=== PATIENT | male | born 1960 | race Caucasian/White ===

== ENCOUNTER 2017-01-02 17:56 | Observation (INO) | payer BC ==
[2017-01-02] MEDS ORDERED: PANTOPRAZOLE SODIUM 80 MG in NS 100 ML IV ONE (18:46)
--- NOTE | 2017-01-02 18:49 | EDPHY ---
H & P Time Seen by Provider: 01/02/17 18:28 HPI/ROS: CHIEF COMPLAINT: Black stools HISTORY OF PRESENT ILLNESS: Patient was sent from his primary care provider at [facility]. He tweaked his back refinishing a deck and took 2 Naprosyn this last week on and again on Sunday night. On Sunday night he had a black stool and then over the next couple of days had 2 more on Sunday and 3 more today. He went to his primary care physician and had Hemoccult-positive stool sample and was sent here. He denies abdominal pain or vomiting, red blood per rectum, dizzy or lightheaded , syncope chest pain or shortness of breath. REVIEW OF SYSTEMS: Eye: no change in vision ENT: no sore throat Cardiac: no chest pain or syncope Pulmonary: no cough or SOB Abdomen: HPI Musculoskeletal: As above in the HPI Skin: no rash Neuro: no headache Constitutional: no fever : no urinary symptoms A comprehensive 10 point review of systems is otherwise negative aside from elements mentioned in the history of present illness. PAST MEDICAL HISTORY: Negative Social history: Occasional alcohol, no tobacco. General Appearance: Alert and conversant, cooperative. Eyes: No scleral icterus. ENT, Mouth: Normal mucous membranes. Respiratory: Normal respiratory effort, breath sounds equal, lungs are clear to auscultation. Cardiovascular: Regular rate and rhythm. Gastrointestinal: Abdomen is soft and non tender. Neurological: Alert and oriented x3. Normally conversant. Face symmetric, normal movement and sensation in all extremities. Skin: Warm and dry, no rashes. No bruising. Musculoskeletal: No peripheral edema and no joint swelling. Psychiatric: Not agitated. Emergency Department course/MDM: Patient had black Hemoccult stools and presents with likely GI bleed. IV Protonix, type and screen, admission to hospitalist with Gastroenterology consultation for endoscopy in the morning. Low likelihood of lower GI bleed, esophageal varices, systemic coagulopathy, intestinal perforation. Discussed with Scarlett Moss. Reynaldo Pantoja. Smoking Status: Never smoked Constitutional: Initial Vital Signs Temperature (C) 37.2 C 01/02/17 18:02 Heart Rate 76 01/02/17 18:02 Respiratory Rate 16 01/02/17 18:02 Blood Pressure 136/85 H 01/02/17 18:02 O2 Sat (%) 98 01/02/17 18:02 O2 Delivery Mode Room Air Allergies/Adverse Reactions: penicillin G Allergy (Verified 01/02/17 18:01) Home Medications: Medication Instructions Recorded Aspirin [Aspirin 81mg (*)] 81 mg PO DAILY 01/02/17 Cholecalciferol Vit D3 [Vitamin D3 1,000 units PO DAILY 01/02/17 (*)] Multivitamins [Multivitamin (*)] 1 each PO DAILY 01/02/17 [place]-3 Fatty Acids [Fish Oil 1000 1,000 mg PO DAILY 01/02/17 mg (*)] Sertraline HCl [Zoloft 50mg (*)] 50 mg PO DAILY 01/02/17 Medical Decision Making Differential Diagnosis: Differential considered including but not limited to upper GI bleed, lower GI bleed, food related, esophageal varices. - Data Points Laboratory Results: Laboratory Results 01/02/17 18:15 01/02/17 18:15 01/02/17 01/02/17 01/02/17 18:15 18:15 18:15 WBC 7.18 10^3/uL 10^3/uL (3.80-9.50) RBC 4.94 10^6/uL 10^6/uL (4.40-6.38) Hgb 14.6 g/dL g/dL (13.7-17.5) Hct 42.9 % % (40.0-51.0) MCV 86.8 fL fL (81.5-99.8) MCH 29.6 pg pg (27.9-34.1) MCHC 34.0 g/dL g/dL (32.4-36.7) RDW 12.6 % % (11.5-15.2) Plt Count 202 10^3/uL 10^3/uL (150-400) MPV 10.8 fL fL (8.7-11.7) Neut % (Auto) 58.0 % % (39.3-74.2) Lymph % (Auto) 30.1 % % (15.0-45.0) [place] % (Auto) 9.3 % % (4.5-13.0) Eos % (Auto) 1.9 % % (0.6-7.6) Baso % (Auto) 0.4 % % (0.3-1.7) Nucleat RBC Rel Count 0.0 % % (0.0-0.2) Absolute Neuts (auto) 4.16 10^3/uL 10^3/uL (1.70-6.50) Absolute Lymphs (auto) 2.16 10^3/uL 10^3/uL (1.00-3.00) Absolute Monos (auto) 0.67 10^3/uL 10^3/uL (0.30-0.80) Absolute Eos (auto) 0.14 10^3/uL 10^3/uL (0.03-0.40) Absolute Basos (auto) 0.03 10^3/uL 10^3/uL (0.02-0.10) Absolute Nucleated RBC 0.00 10^3/uL 10^3/uL (0-0.01) Immature Gran % 0.3 % % (0.0-1.1) Immature Gran # 0.02 10^3/uL 10^3/uL (0.00-0.10) Sodium 140 mEq/L mEq/L (134-144) Potassium 4.0 mEq/L mEq/L (3.5-5.2) Chloride 102 mEq/L mEq/L (97-110) Carbon Dioxide 26 mEq/l mEq/l (22-31) Anion Gap 12 mEq/L mEq/L (8-16) BUN 24 mg/dL H mg/dL (7-23) Creatinine 0.9 mg/dL mg/dL (0.7-1.3) Estimated GFR > 60 Glucose 89 mg/dL mg/dL (70-100) Calcium 9.7 mg/dL mg/dL (8.5-10.4) Patient ABO/Rh A NEGATIVE Antibody Screen NEGATIVE Medications Given: Pantoprazole Sodium 80 mg/ (Sodium Chloride) 100 mls @ 10 mls/hr IV Q10H ONE Stop: 01/03/17 04:45 Last Admin: 01/02/17 19:51 Dose: 100 mls Departure - Departure Disposition: [facility] Acute Clinical Impression: Acute upper GI bleed Condition: Good
[2017-01-02 18:52] LABS: % IMMATURE GRANULYOCYTES 0.3 % (0.0-1.1); ABSOLUTE IMMATURE GRANULOCYTES 0.02 10^3/uL (0.00-0.10); ADD DIFF? NO; ADD MORPH? NO; ADD SCAN? NO; ATYPICAL LYMPHOCYTE FLAG 10 (0-99); FRAGMENT RBC FLAG 0 (0-99); HEMATOCRIT 42.9 % (40.0-51.0); HEMOGLOBIN 14.6 g/dL (13.7-17.5); LEFT SHIFT FLG 0 (0-99); LIPEMIA HEMOLYSIS FLAG 90 (0-99); MEAN CELL HEMOGLOBIN 29.6 pg (27.9-34.1); MEAN CELL VOLUME 86.8 fL (81.5-99.8); MEAN PLATELET VOLUME 10.8 fL (8.7-11.7); PLATELET CLUMPS FLAG 10 (0-99); PLATELET COUNT 202 10^3/uL (150-400); RED BLOOD CELL COUNT 4.94 10^6/uL (4.40-6.38); RED CELL DISTRIBUTION WIDTH 12.6 % (11.5-15.2)
[2017-01-02 19:11] LABS: ANION GAP 12 mEq/L (8-16); CALCIUM 9.7 mg/dL (8.5-10.4); CARBON DIOXIDE 26 mEq/l (22-31); CHLORIDE 102 mEq/L (97-110); CREATININE 0.9 mg/dL (0.7-1.3); GLOMERULAR FILTRATION RATE > 60; GLUCOSE 89 mg/dL (70-100); SODIUM 140 mEq/L (134-144)
[2017-01-02] MEDS ORDERED: ONDANSETRON 4 MG/2 ML VIAL IVP PRN (22:31)
[2017-01-02] MEDS ORDERED: ONDANSETRON DISINTEGRATING 4 MG TAB PO PRN (22:31)
[2017-01-02] MEDS ORDERED: ACETAMINOPHEN 325 MG TAB PO PRN (22:31)
[2017-01-02] MEDS: NS 1,000 ML IV SCH (22:53)
[2017-01-02 23:16] LABS: HEMATOCRIT 40.5 % (40.0-51.0); HEMOGLOBIN 13.7 g/dL (13.7-17.5)
--- NOTE | 2017-01-02 23:20 | GHP ---
[f rep st] HISTORY AND PHYSICAL DATE OF ADMISSION: 01/02/2017 CHIEF COMPLAINT: Melena. HISTORY OF PRESENT ILLNESS: A pleasant 56-year-old male with history of anxiety-depression, present ing with melena starting on Sunday. He was in his normal state of health and noticed small black st ool. This continued Sunday and today; thus, he called his PCP, who recommended him to come to the e mergency room. He injured his back last week moving rocks and took an old prescription of Aleve 500 mg. he took a total of 3 doses over the weekend. Also takes a baby aspirin. Has had increased st ress with work. Drinks 2 cups of coffee a day. No chest pain, shortness of breath, abdominal pain, lightheadedness. No nausea or vomiting. REVIEW OF SYSTEMS: I completed a 10-point review of systems, negative except as noted in HPI. PAST MEDICAL HISTORY: Anxiety-depression. MEDICATIONS: Aspirin, Zoloft, Aleve 500 mg x3 doses over the weekend. PAST SURGICAL HISTORY: None. SOCIAL HISTORY: Lives in [place], works in [place]. Lives with his . Will have an alco aDealioic beverage a night. No illicits or tobacco. FAMILY HISTORY: Brother with polyps. Dad with an ulcer. ALLERGIES: Penicillin. PHYSICAL EXAMINATION: VITAL SIGNS: Temperature 36.8, blood pressure 133/87, heart rate in the 60s, respirations 16, 93% on room air. GENERAL: Well-appearing male, sitting up in bed, no acute distr ess, smiling. HEENT: PERRLA. EOMI. Oropharynx clear. No conjunctival pallor. CV: Regular rate and rhythm. No murmurs, gallops, or rubs. LUNGS: Clear to auscultation. No crackles or wheezing . ABDOMEN: Soft, nontender, nondistended. Positive bowel sounds. : No suprapubic tenderness. MUSCULOSKELETAL: 5/5 upper and lower extremities strength. NEUROLOGIC: 2 through 12 intact. PSY CHIATRIC: Alert and oriented x3. LABORATORY: WBC 7, hemoglobin 14, hematocrit 42, platelets 202. Sodium 140, potassium 4.0, chlorid e 102, carbon dioxide 26, BUN 24, creatinine 0.9, glucose 89, calcium 9.7. ASSESSMENT AND PLAN: 1. Melena, concern for gastrointestinal bleed in setting of Aleve and aspirin. hemoglobin and bia tocrit are normal, and he is hemodynamically stable. Repeat hemoglobin and hematocrit. Check a Hel icobacter pylori. The patient will be evaluated by Dr. Moss with likely esophagogastroduodenoscopy in the morning. Continue intravenous proton pump inhibitor. 2. Anxiety/depression. Continue Zoloft. 3. Diet: Clears and n.p.o. after midnight. 4. Deep venous thrombosis prophylaxis. Low risk, ambulatory. DISPOSITION: The patient warrants observation admission given melena and concern for GI bleed randee berger IV PPI and endoscopy. /[id number]/MODL
[2017-01-03 05:14] LABS: HEMATOCRIT 40.4 % (40.0-51.0); HEMOGLOBIN 13.5 g/dL (13.7-17.5); MEAN CELL HEMOGLOBIN CONCENTR. 33.4 g/dL (32.4-36.7); MEAN CELL VOLUME 86.7 fL (81.5-99.8); RED BLOOD CELL COUNT 4.66 10^6/uL (4.40-6.38); RED CELL DISTRIBUTION WIDTH 12.4 % (11.5-15.2)
--- NOTE | 2017-01-03 06:07 | SOAPPROG ---
SOAP Progress Note Assessment/Plan: Assessment/Plan: Chart reviewed, pt. not seen yet, formal note to follow. Suspect a very limited UGI bleed from NSAID use (normal Hct x multiple values). Unremarkable colon in the recent past. - EGD - suspect home after 01/03/17 06:05 Objective: Vital Signs Temp Pulse Resp BP Pulse Ox 36.7 C 56 L 16 110/54 L 94 01/03/17 04:00 01/03/17 04:00 01/03/17 04:00 01/03/17 04:00 01/03/17 04:00 Laboratory Results 01/03/17 04:38 01/02/17 01/03/17 01/04/17 05:59 05:59 05:59 Intake Total 5 Balance 5 ICD10 Worksheet Patient Problems: Problems Problem Status Onset Acute upper GI bleed Acute
--- NOTE | 2017-01-03 08:55 | HOSPPROG ---
Hospitalist Progress Note Assessment/Plan: Patient is a 56-year-old male who presented with melena that started on Sunday. He had been taking Aleve as well as baby aspirin to help with some back pain. Today is my 1st encounter with the patient. Chart reviewed. * melena Likely an upper GI bleed in the setting of using NSAIDs Will get an EGD today * anxiety, depression Home meds resumed *Plan: likely dc later today after procedure Subjective: Gilberto has no c/o pain/ overall feeling well/ has some frequent bouts of low back pain Objective: Vital Signs Temp Pulse Resp BP Pulse Ox 36.7 C 56 L 12 109/72 96 01/03/17 08:00 01/03/17 08:00 01/03/17 08:00 01/03/17 08:00 01/03/17 08:00 Laboratory Results 01/03/17 04:38 01/02/17 01/03/17 01/04/17 05:59 05:59 05:59 Intake Total 1205 Balance 1205 - Physical Exam Constitutional: no apparent distress, appears nourished, not in pain Eyes: PERRL Ears, Nose, Mouth, Throat: hearing normal Cardiovascular: regular rate and rhythym Respiratory: no respiratory distress Gastrointestinal: normoactive bowel sounds Skin: warm, normal color Musculoskeletal: no muscle tenderness Neurologic: AAOx3 Psychiatric: interacting appropriately, not anxious ICD10 Worksheet Patient Problems: Problems Problem Status Onset Acute upper GI bleed Acute
[2017-01-03] MEDS ORDERED: PANTOPRAZOLE SODIUM 40 MG in NS 100 ML IV SCH (09:00)
[2017-01-03] MEDS ORDERED: OMEGA-3 FATTY ACIDS 1,000 MG CAP PO SCH (09:00)
[2017-01-03] MEDS ORDERED: MULTIVITAMINS 1 EACH TAB PO SCH (09:00)
[2017-01-03] MEDS ORDERED: SERTRALINE HCL 50 MG TAB PO SCH ×2 (09:00)
[2017-01-03] MEDS ORDERED: CHOLECALCIFEROL VIT D3 1,000 UNITS TAB PO SCH (09:00)
[2017-01-03] MEDS: NS 1,000 ML IV SCH (09:53)
[2017-01-03] MEDS ORDERED: NS 500 ML IV ONE (10:37)
[2017-01-03] MEDS ORDERED: MIDAZOLAM 2 MG/2 ML VIAL ONE ×2 (10:55)
[2017-01-03] MEDS ORDERED: fentaNYL 100 MCG/2 ML INJ ONE (10:56)
--- NOTE | 2017-01-03 11:20 | PDPROPOC ---
Sedation Plan of Care ASA Classification: ASA 1 Mallampati Score: Class 1
[2017-01-03] MEDS ORDERED: MIDAZOLAM 2 MG/2 ML VIAL IVP ONE (11:35)
[2017-01-03] MEDS ORDERED: fentaNYL 100 MCG/2 ML INJ IVP ONE (11:35)
--- NOTE | 2017-01-03 11:38 | POSTOPPROG ---
Post Op Note Date of Operation: 01/03/17 Surgeon: Robert Moss Pre-op Diagnosis: melena Post-op Diagnosis: small nonbleeding gastric erosions Procedure: egd Findings: Rec. OTC prilosec 20 mg 3 weeks; no aleve for 3 weeks, then ok with a PPI Inf/Abcess present in the surg proc area at time of surgery?: No EBL: Minimal Complications: None
--- NOTE | 2017-01-03 12:12 | GCON ---
[f rep st] CONSULTATION GI INPATIENT CONSULTATION DATE OF CONSULTATION: 01/03/2017 REASON FOR CONSULTATION: I was kindly requested to see the patient by Dr. Deedee Jacobs in consultation for a chief complaint of melena. HISTORY OF PRESENT ILLNESS: He is a 56-year-old white male, who began to use some Aleve for an acute back injury. He also takes a baby aspirin. He noted on Sunday black stool. He denies abdominal pain, lightheadedness, syncope. Denies nausea, vomiting. Hematocrit is stable at 40%. He had a colonoscopy done by my partner, Dr. Winslow, in 2013, which was unremarkable except for some polyps. PAST MEDICAL HISTORY: 1. As above. 2. Anxiety and depression. 3. Otherwise, noncontributory. OUTPATIENT MEDICATIONS: Include the above. INPATIENT MEDICATIONS: Include Zoloft and IV fluids. SOCIAL HISTORY: He is . FAMILY HISTORY: Negative for similar bleeding. REVIEW OF SYSTEMS: Positive pertinent review of systems as per my HPI. Otherwise, a complete review of systems is negative. PHYSICAL EXAMINATION: CONSTITUTIONAL: Nontoxic, well-developed, pleasant gentleman. SKIN: Warm, dry. EYES: Pupils equal, round, reactive to light and accommodation. EARS, NOSE, MOUTH, THROAT: Oropharynx without masses, moist mucosa. CARDIOVASCULAR: Normal S2, normal PMI. RESPIRATORY: Lungs clear to auscultation and percussion anteriorly. ABDOMEN: Soft, nontender. NEUROLOGIC: Grossly nonfocal, cranial nerves grossly intact. PSYCHIATRIC: Orientation, insight appropriate. MUSCULOSKELETAL: Strength grossly normal throughout, normal sensation. LABORATORIES: Include the above. Normal electrolytes. ASSESSMENT: Description of black stool. I suspect he may have had a very limited upper gastrointestinal bleed, due to his nonsteroidal use. Gastric arteriovenous malformation, gastric cancer, etc., is possible, but less likely. PLAN: 1. Upper endoscopy. 2. Further management pending the above. Thank you for allowing me to help in the care of this patient. /[id number]/MODL MTDD
--- NOTE | 2017-01-03 12:17 | GPN ---
[f rep st] PROCEDURE NOTE DATE OF PROCEDURE: 01/03/2017 PROCEDURE PERFORMED: Upper endoscopy with biopsy. PREPROCEDURE DIAGNOSIS: Description of melena. POSTPROCEDURE DIAGNOSIS: Several small erosions seen in the antrum, nonbleeding. Else, see below. PREMEDICATION: Fentanyl 100 mcg IV, Versed 6 mg IV. COMPLICATIONS: None. TOTAL TIME OF PROCEDURE: From sedation to procedures end was 14 minutes. FINDINGS: After informed consent was obtained, the patient was placed in the left lateral decubitus position. Video upper endoscope was placed under direct visualization and advanced. Esophagus and duodenum were normal. The stomach had several small erosions in the antrum, nonbleeding. No blood seen in the stomach. Biopsy done of the cardia and antrum for H pylori. IMPRESSION: Several small antral erosions. I suspect one of these was the cause of his "black" stool, causing a very self-limited gastrointestinal bleed. His hematocrit has remained normal. Now, no further evidence of bleeding. PLAN: 1. Will let him eat. 2. Will change him to a PPI daily. 3. Biopsies for H pylori pending. From a GI standpoint, okay to discharge home. Would recommend, upon discharge: a) Prilosec [id number] 20 mg daily for 3 weeks. b) okay to continue aspirin. c) would avoid nonsteroidals, including Aleve, for the next 3 weeks. Okay to use a low-dose narcotic as needed for his acute back pain. d) after 3 weeks, okay for him to use nonsteroidals in the future, if necessary. However, if he does need to use a nonsteroidal, would recommend taking [id number] Prilosec daily while using these. I will follow up on his biopsy for H pylori, but suspect it to be negative. Otherwise, follow up with his PCP as needed. Thank you for allowing me to help in the care of this patient. Please let me know if we can be of further help in the future. /[id number]/MODL MTDD
[2017-01-03 12:29] VITALS: BP 114/77; PULSE 52; RESP 14; TEMP 97.9; O2SAT 97
--- NOTE | 2017-01-03 13:37 | GDS ---
[f rep st] DISCHARGE SUMMARY DISCHARGE DIAGNOSES: 1. Gastrointestinal bleed, upper, secondary to non-steroidal anti-inflammatories use. 2. Anxiety. CONSULTATIONS: Dr. Robert Moss. HISTORY OF PRESENT ILLNESS: Briefly, the patient is a 56-year-old male, who presented with melena t hat started on Sunday. He had been taking Aleve as well as baby aspirin to help with some back pain . He had an EGD performed today with Dr. Moss. It showed several small antral erosions. He suspec silver that one of these was the cause of his black stool, causing a very limited gastrointestinal blee d. He will be discharged home today and further followup with Dr. Moss in the outpatient setting. CONDITION AT DISCHARGE: Stable. Blood pressure is 114/77, heart rate is 52, respiratory rate is 14 , O2 sats on room air 97%, and temperature is 36.6 Celsius. MEDICATIONS AT DISCHARGE: Please see the EMR. DISCHARGE INSTRUCTIONS: 1. Avoid NSAIDs for the next 3 weeks. 2. If he needs them for back pain, to take Prilosec when he does take NSAIDs. 3. Okay to resume his aspirin. 4. Take Prilosec for the next 3 weeks. /[id number]/MODL
[2017-01-04] MEDS ORDERED: PANTOPRAZOLE SODIUM 40 MG TAB PO SCH (09:00)
== END 2017-01-03 15:00 | disposition home or self-care (01) ==
LOC: F3E 19:55
PROVIDERS: ADMIT Internal Medicine; ATTEND Internal Medicine
PROC: 0DB68ZX Excision of Stomach, Via Natural or Artificial Opening Endoscopic, Diagnostic (ICD-10-PCS; principal; 2017-01-02)
DX: K25.9 Gastric ulcer, unspecified as acute or chronic, without hemorrhage or perforation (principal); T39.315A Adverse effect of propionic acid derivatives, initial encounter; T39.015A Adverse effect of aspirin, initial encounter; F41.8 Other specified anxiety disorders; S39.92XA Unspecified injury of lower back, initial encounter; X50.0XXA Overexertion from strenuous movement or load, initial encounter; Y93.H2 Activity, gardening and landscaping
CPT/HCPCS: 43239; 96365; 96366; 99285; G0378; J2250; J3010